=== PATIENT | female | born 2000 | race Caucasian/White ===

== ENCOUNTER 2024-11-29 15:57 | Emergency (ER) | payer OTHER ==
[2024-11-29 16:02] VITALS: BP 106/51; PULSE 85; RESP 18; TEMP 98; BMI 22.4
[2024-11-29 17:33] LABS: ABSOLUTE IMMATURE GRANULOCYTES 0.02 x10^3/uL (0.0-0.031); BASOPHILS # 0.08 x10^3/uL (0.01-0.08); EOSINOPHIL % 4.1 % (0.7-5.8); EOSINOPHILS # 0.34 x10^3/uL (0.04-0.36); MCHC 32.3 g/dl (32.2-35.5); MEAN CELL VOLUME 81.3 fl (79.4-94.8); MEAN PLT VOLUME 9.8 fl (9.4-12.3); MONOCYTE # 0.45 x10^3/uL (0.24-0.86); MONOCYTE % 5.4 % (4.7-12.5); RDW 12.4 % (12.1-16.5)
[2024-11-29 17:37] LABS: EPI CELLS 35 /uL (0-25.1); HYALINE CASTS 0 /uL (0-3.1); URINE APPEARANCE CLEAR; URINE BACTERIA 306 /uL (0-1359); URINE BILIRUBIN NEGATIVE (NEGATIVE); URINE COLOR YELLOW; URINE GLUCOSE (UA) NEGATIVE (NEGATIVE); URINE KETONE TRACE (NEGATIVE); URINE LEUK ESTERASE TRACE (NEGATIVE); URINE NITRITE NEGATIVE (NEGATIVE); URINE PROTEIN NEGATIVE (NEGATIVE); URINE RBC 17 /uL (0-23.9); URINE UROBILINOGEN 0.2 mg/dL (0.2-1.0); URINE WBC 11 /uL (0-25.8)
[2024-11-29 17:39] LABS: INR 1.13 (0.83-1.09); PROTHROMBIN TIME (PATIENT) 12.3 SEC (9.7-13.0)
[2024-11-29 17:42] LABS: ACTIVATED PTT 31.5 SECONDS (25.2-36.5)
[2024-11-29 18:16] LABS: GLUCOSE,RANDOM 85.0 mg/dL (74-106); TOT PROT 8.2 g/dl (6.4-8.2)
[2024-11-29 18:17] LABS: CO2 24.0 mmol/L (21-32)
[2024-11-29 18:19] LABS: ALK PHOS 48.0 U/L (40-150)
[2024-11-29 18:22] LABS: CREATININE 0.66 mg/dL (0.55-1.3); SGOT/AST 22.0 U/L (5-34); SGPT/ALT 9.0 U/L (0-55)
[2024-11-29 19:04] LABS: HCG,QUALITATIVE URINE Positive
== END 2024-11-29 19:12 | disposition home or self-care (01) ==
LOC: JER 15:57
DX: O20.9 Hemorrhage in early pregnancy, unspecified (principal); Z3A.01 Less than 8 weeks gestation of pregnancy
CPT/HCPCS: 36415; 76817-TC; 80053; 81003; 84702; 84703; 85025; 85610; 85730; 86850; 86900; 86901; 87086; 99284-25

== ENCOUNTER 2024-12-15 10:50 | Emergency (ER) | payer OTHER ==
[2024-12-15 10:58] VITALS: BP 109/71; PULSE 89; RESP 20; TEMP 98.2; BMI 21.7
== END 2024-12-15 13:04 | disposition home or self-care (01) ==
LOC: JERFT 10:50
DX: O03.9 Complete or unspecified spontaneous abortion without complication (principal)
CPT/HCPCS: 36415; 84702; 99283-25